=== PATIENT | female | born 1960 | race Caucasian/White ===

== ENCOUNTER 2020-11-06 20:06 | Emergency (ER) | payer BC ==
[~2020-11-06] VITALS: Ht 157.5 cm; Wt 59.1 kg
[2020-11-07] MEDS ORDERED: TETanus/Pertussis (Acell)/Diphther VAC/PF (Tdap-Adult) 0.5ml syringe IMVAC ONE (02:05)
[2020-11-07 02:08] VITALS: BP 150/80
[2020-11-07] MEDS ORDERED: LIDOcaine 1% W/epiNEPHrine 1:200,000 10ml vial IJ ONE (02:15)
[2020-11-07] MEDS ORDERED: LIDOcaine 1% w/epiNEPHrine 1:200,000 30ml vial IJ ONE (02:15)
[2020-11-07] MEDS ORDERED: acetaminophen 325mg tablet PO ONE (02:50)
== END 2020-11-07 03:24 | disposition home or self-care (01) ==
LOC: ER 20:10
DX: S01.111A Laceration without foreign body of right eyelid and periocular area, initial encounter (principal); S06.0X0A Concussion without loss of consciousness, initial encounter; R51.9 Headache, unspecified; X58.XXXA Exposure to other specified factors, initial encounter; Y93.89 Activity, other specified; Y92.89 Other specified places as the place of occurrence of the external cause; Y99.8 Other external cause status
CPT/HCPCS: 12011; 99284